=== PATIENT | female | born 2000 | race African-American/Black ===

== ENCOUNTER 2023-10-20 17:56 | Day surgery (SDC) | payer SELFPAY | END 2023-10-20 19:15 | disposition home or self-care (01) | LOC: CSHLD/OP 17:56 | PROVIDERS: ATTEND Family Medicine | DX: O46.93 Antepartum hemorrhage, unspecified, third trimester (principal); Z79.899 Other long term (current) drug therapy; Z3A.38 38 weeks gestation of pregnancy ==

== ENCOUNTER 2023-10-21 15:02 | Inpatient (IN) | payer MEDICAID, OTHER, SELFPAY ==
[~2023-10-21 15:02] MED LIST: Bupivacaine 0.25% HCL 30 ML VIAL ONE
[2023-10-21] MEDS ORDERED: fentaNYL 50 mcg/mL 1 mL Vial SLOW IVP PRN (15:51)
[2023-10-21] MEDS ORDERED: Tranexamic Acid 1,000 MG/10 ML VIAL IVP PRN (15:51)
[2023-10-21] MEDS ORDERED: HYDROcodone/Acetaminophen 5/325 mg Tablet PO PRN ×2 (15:51→23:09)
[2023-10-21] MEDS ORDERED: hydrALAZINE 20 MG/ML VIAL SLOW IVP PRN ×2 (15:51→23:09)
[2023-10-21] MEDS ORDERED: Ibuprofen 800 MG TAB PO PRN (15:51)
[2023-10-21] MEDS ORDERED: Carboprost 250 MCG/ML AMP IM PRN (15:51)
[2023-10-21] MEDS ORDERED: Ondansetron PF 4 MG/2 ML Vial IVP PRN ×2 (15:51→23:09)
[2023-10-21] MEDS ORDERED: Promethazine HCl 25 MG/ML VIAL IM PRN ×2 (15:51→23:09)
[2023-10-21] MEDS ORDERED: Diphenoxylate HCl/Atropine Tablet PO PRN (15:51)
[2023-10-21] MEDS ORDERED: Misoprostol 200 MCG TAB PR PRN (15:51)
[2023-10-21] MEDS ORDERED: Lidocaine 1% (PF) 30 ML VIAL SC PRN (15:51)
[2023-10-21] MEDS ORDERED: Acetaminophen 500 MG TAB PO PRN (15:51)
[2023-10-21] MEDS ORDERED: Methylergonovine 0.2 MG/ML VIAL IM PRN (15:51)
[2023-10-21] MEDS ORDERED: Lactated Ringer's 1,000 ML IV SCH (16:00)
[2023-10-21] MEDS ORDERED: Oxytocin 30 units/NS 500 ML 500 ML IV SCH ×4 (16:00→23:09)
[2023-10-21] MEDS ORDERED: fentaNYL/Ropivacaine Epidural 100 ML ONE (16:04)
[2023-10-21] MEDS ORDERED: Oxytocin 30 units/NS 500 ML 500 ML ONE (16:05)
[2023-10-21 16:26] LABS: Mean Corpuscular Hemoglobin 24.4 pg (27.0-33.0); Mean Corpuscular Volume 78.6 fl (81.6-98.3); Mean Platelet Volume 10.8 fl (7.4-10.4); Platelet Count 279 10x3/uL (150-450); RBC Distribution Width 14.1 % (11.5-14.5); Red Blood Cell (RBC) Count 3.69 10x6/uL (3.90-5.03); White Blood Cell (WBC) Count 8.2 10x3/uL (3.5-10.5)
[2023-10-21] MEDS ORDERED: diphenhydrAMINE 25 MG CAP PO PRN (23:09)
[2023-10-21] MEDS ORDERED: Preparation H Ointment 28 GM TUBE PR PRN (23:09)
[2023-10-21] MEDS ORDERED: Benzocaine-Menthol 82.5 ML CAN TOP PRN (23:09)
[2023-10-21] MEDS ORDERED: Milk Of Magnesia 30 ML UDCUP PO PRN (23:09)
[2023-10-21] MEDS ORDERED: Boostrix 0.5 ML (Tdap) VIAL (>/=7 yrs of age) IM ONE (23:09)
[2023-10-21] MEDS ORDERED: Bisacodyl 10 MG SUPP PR PRN (23:09)
[2023-10-21] MEDS ORDERED: Lanolin Ointment 7 GM TUBE TOP PRN (23:09)
[2023-10-21] MEDS ORDERED: Docusate 100 MG CAP PO SCH (23:15)
[2023-10-21] MEDS ORDERED: Ibuprofen 800 MG TAB PO SCH (23:15)
[2023-10-21] MEDS: Docusate 100 MG CAP PO SCH (23:25)
[2023-10-21 23:31] VITALS: BMI 28.9
[2023-10-22] MEDS ORDERED: Lactated Ringer's 500 ML IV PRN (00:03)
[2023-10-22] MEDS ORDERED: diphenhydrAMINE 50 MG/ML VIAL IVP PRN (00:03)
[2023-10-22] MEDS ORDERED: Ondansetron PF 4 MG/2 ML Vial IVP PRN (00:03)
[2023-10-22] MEDS ORDERED: Moisturizing Cream (Eucerin) 113 GM JAR TOP PRN (00:03)
[2023-10-22] MEDS ORDERED: Acetaminophen 325 MG TAB PO PRN (00:03)
[2023-10-22] MEDS ORDERED: Promethazine HCl 25 MG/ML VIAL IM PRN (00:03)
[2023-10-22] MEDS ORDERED: ePHEDrine Sulfate 50 MG/10 ML VIAL SLOW IVP PRN (00:03)
[2023-10-22] MEDS ORDERED: Naloxone HCl 0.4 mg/ml Vial IVP PRN ×2 (00:03)
[2023-10-22] MEDS ORDERED: HYDROcodone/Acetaminophen 5/325 mg Tablet PO PRN (00:11)
[2023-10-22] MEDS ORDERED: Communication Order-Pharmacy FS SCH (00:15)
[2023-10-22] MEDS ORDERED: fentaNYL 2 mcg/Ropivacaine 0.2% Epidural 100 ML CADD EPIDURAL SCH (00:15)
[2023-10-22] MEDS: Ibuprofen 800 MG TAB PO SCH ×3 (07:50→21:48)
[2023-10-22] MEDS: Prenatal Vitamin 1 TAB PO SCH (07:51)
[2023-10-22] MEDS: Ferrous Sulfate 325 MG TAB PO SCH ×2 (07:51→16:48)
[2023-10-22 18:44] LABS: HBSAg Index 0.17 S/CO (0-0.99); Hep B Surf Ag - L&D Non-Reactive S/CO (NonReactive)
[2023-10-22 18:45] LABS: Syphilis Antibody Nonreactive (Nonreactive); Syphilis Antibody Index 0.04 S/CO (<1.00 Non-Reactive)
[2023-10-22] MEDS: Docusate 100 MG CAP PO SCH (21:47)
[2023-10-23] MEDS: Ibuprofen 800 MG TAB PO SCH (05:41)
[2023-10-23 08:09] VITALS: BP 90/50; TEMP 98.2
[2023-10-23] MEDS: Docusate 100 MG CAP PO SCH (11:22)
[2023-10-23] MEDS: Prenatal Vitamin 1 TAB PO SCH (11:22)
[2023-10-23] MEDS: Ferrous Sulfate 325 MG TAB PO SCH (11:22)
== END 2023-10-23 17:10 | disposition home or self-care (01) | DRG 806 ==
LOC: CSHLD/OP 15:02 → CSHLD 15:51 → CSHPP 22:08
PROVIDERS: ADMIT Family Medicine; ATTEND Family Medicine
PROC: 10907ZC Drainage of Amniotic Fluid, Therapeutic from Products of Conception, Via Natural or Artificial Opening (ICD-10-PCS; principal; 2023-10-21)
PROC: 10E0XZZ Delivery of Products of Conception, External Approach (ICD-10-PCS; 2023-10-21)
PROC: 0UQGXZZ Repair Vagina, External Approach (ICD-10-PCS; 2023-10-21)
PROC: 10H07YZ Insertion of Other Device into Products of Conception, Via Natural or Artificial Opening (ICD-10-PCS; 2023-10-21)
DX: O42.02 Full-term premature rupture of membranes, onset of labor within 24 hours of rupture (principal); O71.4 Obstetric high vaginal laceration alone; Z37.0 Single live birth; Z3A.39 39 weeks gestation of pregnancy; Z79.82 Long term (current) use of aspirin
CPT/HCPCS: 36415; 85027; 86780; 86850; 86900; 86901; 87340; 99285; J7120; S0020